=== PATIENT | female | born 1955 | race Caucasian/White ===

== ENCOUNTER 2020-10-23 12:19 | Inpatient (IN) | payer OTHER, MEDICARE ==
[~2020-10-23] VITALS: Ht 167.6 cm; Wt 68.0 kg
[2020-10-23 12:48] VITALS: BP 133/72
[2020-10-23 14:16] LABS: ABSOLUTE NEUTROPHILS 8.8 thou/uL (1.4-8.2); BASOPHILS 0.3 % (0.0-2.0); HEMATOCRIT 40.8 % (37.0-47.0); HEMOGLOBIN 13.6 gm/dL (12.0-15.0); LYMPHOCYTES 7.6 % (24.0-44.0); MCH 30.6 pg (26.0-34.0); MCHC 33.2 g/dL (28.0-37.0); MONOCYTES 4.7 % (1.0-8.0); PLATELET COUNT 242 thou/uL (150-400); POLYS 86.4 % (36.0-66.0); RBC 4.43 mil/uL (4.20-5.00); RDW 13.5 % (10.5-14.5); WBC 10.2 thou/uL (4.0-11.0)
[2020-10-23 14:33] LABS: ANION GAP 10 mmol/L (7-16); BUN 17 mg/dL (7-18); CALCIUM 9.5 mg/dL (8.5-10.1); CHLORIDE 107 mmol/L (98-107); CO2 27 mmol/L (21-32); CREATININE 0.7 mg/dL (0.6-1.0); GLUCOSE 108 mg/dL (74-106); POTASSIUM 3.9 mmol/L (3.5-5.1); SODIUM 144 mmol/L (136-145)
[2020-10-23 14:41] LABS: ALBUMIN 3.9 g/dL (3.4-5.0); SGOT 24 U/L (15-37); SGPT 31 U/L (14-59); TOTAL BILIRUBIN 0.3 mg/dL (0.2-1.0); TOTAL PROTEIN 7.7 g/dL (6.4-8.2); TROPONIN-I <0.06 ng/mL (<0.06)
[2020-10-23 17:32] VITALS: BP 137/56
[2020-10-23 18:03] VITALS: BP 147/75
--- NOTE | 2020-10-23 18:33 | NUR ---
ASSUMED PT CARE AT 1800 FROM ER. PT IS ALERT & ORIENTED X4. PT HAS IV SITE ON L AC 20 GAUGE. PT DENIES NAUSEA AND VOMITING. PT RATED PAIN 3/10 ON THE STERNUM BUT REFUSED PAIN MEDICATION. PT IS ON TELE MONITOR ON. PT IS UP AD BETHANY. PT TOLERATED DIET WELL. PT SON AT THE BEDSIDE. FINISHED ADMISSION. PT ON THE BED, BED ON THE LOWEST POSITION, SIDE RAILS UP, CALL LIGHT WITHIN REACH. WILL CONTINUE TO MONITOR PT. FOLLOW POC.
[2020-10-23 19:22] VITALS: BP 132/56
[2020-10-24 07:38] VITALS: BP 127/66
--- NOTE | 2020-10-24 07:42 | NUR ---
Assumed pt care at 1900. A/OX4,VSS.Up ad maryann in unit w/o problems. C/o pain to mid sternum with coughing/movement,requested for Tylenol. Order obtained from for Tylenol 650mg Q6PRN,administered with relief reported. SR on telemetry.
[2020-10-24 11:37] VITALS: BP 127/66
--- NOTE | 2020-10-24 12:10 | NUR ---
ASSUMED PT CARE AROUND 0700. PT ALERT X ORIENTED X 4. ON ROOM AIR. UP AD BETHANY.NO C/O PAIN OR NAUSEA.IV LEFT AC/ SALINE LOCKED.ON TELE WITH NORMAL SINUS RYTHM. ON OBSERVATION.
--- NOTE | 2020-10-24 15:17 | EKG ---
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
== END 2020-10-24 12:03 | disposition home or self-care (01) | DRG 566 ==
LOC: ER 12:19 → EROBS 16:48 → 4W 17:48
PROVIDERS: Physician Assistant; ADMIT Surgery; ATTEND Surgery
DX: S22.20XA Unspecified fracture of sternum, initial encounter for closed fracture (principal); R16.0 Hepatomegaly, not elsewhere classified; Z88.0 Allergy status to penicillin; Z88.2 Allergy status to sulfonamides; Z88.1 Allergy status to other antibiotic agents; V49.9XXA Car occupant (driver) (passenger) injured in unspecified traffic accident, initial encounter; Y93.89 Activity, other specified; Y92.89 Other specified places as the place of occurrence of the external cause; Y99.8 Other external cause status; Z85.89 Personal history of malignant neoplasm of other organs and systems
CPT/HCPCS: 10045